=== PATIENT | female | born 1985 | race Caucasian/White ===

== ENCOUNTER 2019-01-18 09:04 | Emergency (ER) | payer OTHER ==
[~2019-01-18] VITALS: Ht 152.4 cm; Wt 51.7 kg
== END 2019-01-18 12:51 | disposition home or self-care (01) ==
LOC: ER 09:04
DX: K80.20 Calculus of gallbladder without cholecystitis without obstruction (principal); N20.0 Calculus of kidney; R10.13 Epigastric pain

== ENCOUNTER 2020-09-11 05:45 | Day surgery (SDC) | payer OTHER ==
[2020-09-11] MEDS ORDERED: PERCOCET 5-3251 EACH PO (10:23)
[2020-09-11] MEDS ORDERED: NEURONTIN600 M1 PO (10:24)
== END 2020-09-11 12:35 | disposition home or self-care (01) ==
LOC: CIR.AMB 05:45
PROVIDERS: ATTEND Surgery
DX: K80.10 Calculus of gallbladder with chronic cholecystitis without obstruction (principal); Z20.828 Contact with and (suspected) exposure to other viral communicable diseases